=== PATIENT | male | born 1965 | race Caucasian/White ===

== ENCOUNTER 2016-11-17 10:32 | Emergency (ER) | payer SELFPAY ==
--- NOTE | 2016-11-17 11:02 | ED ORDER SUMMARY ---
..... Patient: GINGER GREEN OrderSheet [facility] VisitID: [id number] [place] [address] 51y, M Registration Date/Time: 11/17/2016 ORDER SHEET Weight: 107.7 kg (stated) Allergies: No Known Drug Allergy GENERAL ORDERS: MEDICATION ORDERS: Toradol IM 60 mg (NOW) (10:59 11/17/2016 Oskar Kuo) (11:04 Leighann R.N.) Clindamycin PO 300 mg (NOW) (11:23 11/17/2016 Oskar Kuo) (11:26 Leighann R.N.) IV FLUIDS: ORDER SHEET NOTES: [Electronically signed by Daphne Rollins R.N. (11:30 11/17/2016)] [Electronically signed by Macho Patterson Dr. (20:28 11/18/2016)] [Electronically locked/signed by Daphne Rollins R.N. (11:11/17/2016)]
--- NOTE | 2016-11-17 11:02 | ED CLINICAL REPORT ---
Clinical Report - Physicians/Mid Levels [facility] [address] [place] [address] 11/17/2016 10:34 Patient: GINGER GREEN Time Seen: 10:39. Arrived- By private vehicle. Historian- patient. HISTORY OF PRESENT ILLNESS Chief Complaint: EARACHE. itchy, red, rash. Modifying factors. Not worsened by anything. Not relieved by anything. This started several years ago and is still present (worse since 3 days ago). The patient cannot recall the circumstances at the onset. Location- right ear and left ear. The pain is described as mild. The patient has had ear pain. No ear drainage, complaint of foreign body in the ear or ear trauma. Similar symptoms previously: Many times. Recent medical care: Not recently seen/assessed. REVIEW OF SYSTEMS No fever, chills, nausea or vomiting. He has had skin rash. PAST HISTORY Hypertension. Back Pain. ADDITIONAL SURGERIES: Hernia Repair. Medications: Aleve Oral, as needed. Allergies: No Known Drug Allergy. SOCIAL HISTORY Current every day smoker. Occasional alcohol use. History of drug use: marijuana. ADDITIONAL NOTES The nursing notes have been reviewed. PHYSICAL EXAM Vital Signs: 11/17/2016 10:43 BP: 160/91. HR: 85. RR: 14. O2 saturation: 99%. Temp: 97.8 F. Pain level now: 6/10. Have been reviewed. Hypertensive. Heart rate normal. Respiratory rate normal. Temperature normal. Oxygen saturation normal. Appearance: Alert. No acute distress. Ear (left): There is tenderness of the auricle. No lymphadenopathy. Left tympanic membrane normal. Ear (right): There is tenderness of the auricle. No lymphadenopathy. Right tympanic membrane normal. Neck: No lymphadenopathy. Skin: Small area of cellulitis with tenderness, erythema and warmth (both auricles). No lymphangitis. PROGRESS AND PROCEDURES Disposition: Discharged home in good and improved condition. Condition: good. CLINICAL IMPRESSION Cellulitis of the right and left ear. INSTRUCTIONS Your Current Medications: CONTINUE TAKING THE FOLLOWING MEDICATIONS: Aleve Oral : prn. Prescription Medications: Mupirocin 2% ointment: apply small amount to affected area three times daily. Dispense twenty-two (22) grams. No refills. Clindamycin 300 mg: take 1 capsule orally every 8 hours for 7 days. No refill. Follow-up: Screening today revealed the patient's blood pressure to be in the hypertensive range. The patient should follow up with a primary care provider for blood pressure management. Follow-up with: Ander Morgan MD, [facility], , [place] [id number] Follow up in about two days. Call for an appointment. (Electronically signed by Macho Patterson Dr. 11/18/2016 20:28)
--- NOTE | 2016-11-17 11:02 | ED NURSING NOTES ---
Clinical Report - Nurses [facility] [address] [place] [address] 11/17/2016 10:34 Patient: GINGER GREEN TRIAGE Triage time 1044. Acuity: LEVEL 4. Chief Complaint: RIGHT EAR PAIN and LEFT EAR PAIN. Alert. No acute distress. SEPSIS SCREEN: Sepsis Screen. Negative (no infection suspected/documented). GEGE COMA SCORE: [place] Coma Scale: 15- eyes open spontaneously (4); best verbal response- oriented x 4 (5); best motor response- obeys commands (6). --10:59 Daphne Rollins R.N. 10:43 11/17/16. BP: 160/91 (regular adult cuff) taken on the left arm, via an automated monitor, while sitting. HR: 85. RR: 14. O2 saturation: 99% on room air. Temp: 97.8 F (oral). Pain level now: 12/12. --10:59 Daphne Rollins R.N. Weight: 107.7 kg stated. Height/Length: 69 inches Per Patient. BMI: 35.1. --10:43 Daphne Rollins R.N. Medications Aleve Oral, as needed. --10:49 Daphne Rollins R.N. Allergies No Known Drug Allergy. --10:49 Daphne Rollins R.N. Medication/allergy information source: the patient. --10:59 Daphne Rollins R.N. History Arrived by private vehicle. Historian: patient. Primary physician (none). ( Pt states ear problem has been an ongoing for the past 6-7 years, pt unsure of what his issue is he believes it has to do with "dryness" has used peroxide in the past to help. "This last ear pain, mostly right ear but left also hurts started about 2 days ago", he thinks he had a fever, H/A, dizziness. Right side noted to be red, specially around his right ear and side of his head. Pt tried to see an ENT today but unable to get appointment.). Onset. (2 days ongoing for 6-7 years). He has had fever, ear drainage and a headache. 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 PAST MEDICAL HX: Immunizations: status is unknown. SOCIAL HX: Heavy tobacco smoker- less than 1 pack per day. Alcohol use; consumes three beers occasionally. History of drug use: marijuana. (5 months). No infectious disease exposure. ABUSE ASSESSMENT: No report of abuse. SELF HARM ASSESSMENT: A self harm assessment was performed. The patient answered "no" to the question "Do you have thoughts of harming or killing yourself?" and "Have you recently had thoughts about harming or killing others?". FALL RISK ASSESSMENT: Fall risk assessment completed. No fall risk identified. NUTRITIONAL RISK ASSESSMENT: The nutritional risk assessment revealed no deficiencies. FUNCTIONAL ASSESSMENT: Functional assessment: no impairments noted. LEARNING NEEDS ASSESSMENT: The learning needs assessment revealed no barriers. SKIN INTEGRITY ASSESSMENT: Skin integrity risk assessment completed. No skin integrity risk identified. --10:59 Daphne Rollins R.N. PROBLEMS: Hypertension. Back Pain. --10:49 Daphne Rollins R.N. ADDITIONAL SURGERIES: Hernia Repair. --10:49 Daphne Rollins R.N. Interventions ID band on patient. --10:59 Daphne Rollins R.N. PHYSICAL ASSESSMENT Ambulatory to room. GENERAL / NEURO / PSYCH: Alert. Appears in pain. HEENT: Erythema of the right auricle; inflammation present in the right external auditory canal. Nares within normal limits. Pharynx within normal limits. No nasal discharge. No hearing deficit. RESPIRATORY: Respirations not labored. CVS: Capillary refill less than 2 seconds. SKIN: Skin is warm and dry. --11:01 Daphne Rollins R.N. NURSING PROGRESS NOTES The initial plan of care for this patient has been created This plan of care was discussed with the patient. Warming measures: blanket applied. Reassurance given. Two patient identifiers checked. Call light placed in reach. Side rails up. Bed placed in lowest position. --11:01 Daphne Rollins R.N. 11:04 11/17/2016 Toradol (Ketorolac Tromethamine) IM 60 mg given. Given in the right deltoid. Allergies verified and confirmed 5 rights. --11:04 Daphne Rollins R.N. 11:25 11/17/2016 Toradol IM Response: no adverse reaction pain is improving. Symptoms have improved the patient feels better. --11:30 Daphne Rollins R.N. 11:26 11/17/2016 Clindamycin PO Capsules 300 mg given. Allergies verified and confirmed 5 rights. --11:26 Daphne Rollins R.N. DISPOSITION / DISCHARGE Departure time: 1130 PM. Condition at departure: improved and stable. The goals identified in the patient's plan of care were met. No learning barriers present. Discharge instructions provided and reviewed with the patient. Reviewed medication(s) side effects, precautions, dosing and course information. Prescription(s) given to the patient. Reviewed referral to an zipper cutter for followup. Patient verbalized understanding. Written instructions provided in Japanese. The patient was discharged by the physician. He was discharged home and unaccompanied at time of discharge. He left the Emergency Department ambulatory and via private vehicle. FALL RISK ASSESSMENT: Fall risk assessment completed. No fall risk identified. --11:30 Daphne Rollins R.N. 11:20 11/17/16. BP: 160/81. HR: 84. RR: 15. O2 saturation: 99% on room air. Temp: 97.8 F (oral). Pain level now: 10/12. --11:30 Daphne Rollins R.N. Locked/Released at 11/17/2016 11:30 by Daphne Rollins R.N.
--- NOTE | 2016-11-17 11:02 | ED ORDER SUMMARY ---
..... Patient: GINGER GREEN OrderSheet [facility] VisitID: [id number] [place] [address] 51y, M Registration Date/Time: 11/17/2016 ORDER SHEET Weight: 107.7 kg (stated) Allergies: No Known Drug Allergy GENERAL ORDERS: MEDICATION ORDERS: Toradol IM 60 mg (NOW) (10:59 11/17/2016 Oskar Kuo) (11:04 Leighann R.N.) Clindamycin PO 300 mg (NOW) (11:23 11/17/2016 Oskar Kuo) (11:26 Leighann R.N.) IV FLUIDS: ORDER SHEET NOTES: [Electronically signed by Daphne Rollins R.N. (11:30 11/17/2016)] [Electronically signed by Macho Patterson Dr. (20:28 11/18/2016)] [Electronically locked/signed by Daphne Rollins R.N. (11:11/17/2016)]
--- NOTE | 2016-11-17 11:02 | ED NURSING NOTES ---
Clinical Report - Nurses [facility] [address] [place] [address] 11/17/2016 10:34 Patient: GINGER GREEN TRIAGE Triage time 1044. Acuity: LEVEL 4. Chief Complaint: RIGHT EAR PAIN and LEFT EAR PAIN. Alert. No acute distress. SEPSIS SCREEN: Sepsis Screen. Negative (no infection suspected/documented). GEGE COMA SCORE: [place] Coma Scale: 15- eyes open spontaneously (4); best verbal response- oriented x 4 (5); best motor response- obeys commands (6). --10:59 Daphne Rollins R.N. 10:43 11/17/16. BP: 160/91 (regular adult cuff) taken on the left arm, via an automated monitor, while sitting. HR: 85. RR: 14. O2 saturation: 99% on room air. Temp: 97.8 F (oral). Pain level now: 12/12. --10:59 Daphne Rollins R.N. Weight: 107.7 kg stated. Height/Length: 69 inches Per Patient. BMI: 35.1. --10:43 Daphne Rollins R.N. Medications Aleve Oral, as needed. --10:49 Daphne Rollins R.N. Allergies No Known Drug Allergy. --10:49 Daphne Rollins R.N. Medication/allergy information source: the patient. --10:59 Daphne Rollins R.N. History Arrived by private vehicle. Historian: patient. Primary physician (none). ( Pt states ear problem has been an ongoing for the past 6-7 years, pt unsure of what his issue is he believes it has to do with "dryness" has used peroxide in the past to help. "This last ear pain, mostly right ear but left also hurts started about 2 days ago", he thinks he had a fever, H/A, dizziness. Right side noted to be red, specially around his right ear and side of his head. Pt tried to see an ENT today but unable to get appointment.). Onset. (2 days ongoing for 6-7 years). He has had fever, ear drainage and a headache. 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 PAST MEDICAL HX: Immunizations: status is unknown. SOCIAL HX: Heavy tobacco smoker- less than 1 pack per day. Alcohol use; consumes three beers occasionally. History of drug use: marijuana. (5 months). No infectious disease exposure. ABUSE ASSESSMENT: No report of abuse. SELF HARM ASSESSMENT: A self harm assessment was performed. The patient answered "no" to the question "Do you have thoughts of harming or killing yourself?" and "Have you recently had thoughts about harming or killing others?". FALL RISK ASSESSMENT: Fall risk assessment completed. No fall risk identified. NUTRITIONAL RISK ASSESSMENT: The nutritional risk assessment revealed no deficiencies. FUNCTIONAL ASSESSMENT: Functional assessment: no impairments noted. LEARNING NEEDS ASSESSMENT: The learning needs assessment revealed no barriers. SKIN INTEGRITY ASSESSMENT: Skin integrity risk assessment completed. No skin integrity risk identified. --10:59 Daphne Rollins R.N. PROBLEMS: Hypertension. Back Pain. --10:49 Daphne Rollins R.N. ADDITIONAL SURGERIES: Hernia Repair. --10:49 Daphne Rollins R.N. Interventions ID band on patient. --10:59 Daphne Rollins R.N. PHYSICAL ASSESSMENT Ambulatory to room. GENERAL / NEURO / PSYCH: Alert. Appears in pain. HEENT: Erythema of the right auricle; inflammation present in the right external auditory canal. Nares within normal limits. Pharynx within normal limits. No nasal discharge. No hearing deficit. RESPIRATORY: Respirations not labored. CVS: Capillary refill less than 2 seconds. SKIN: Skin is warm and dry. --11:01 Daphne Rollins R.N. NURSING PROGRESS NOTES The initial plan of care for this patient has been created This plan of care was discussed with the patient. Warming measures: blanket applied. Reassurance given. Two patient identifiers checked. Call light placed in reach. Side rails up. Bed placed in lowest position. --11:01 Daphne Rollins R.N. 11:04 11/17/2016 Toradol (Ketorolac Tromethamine) IM 60 mg given. Given in the right deltoid. Allergies verified and confirmed 5 rights. --11:04 Daphne Rollins R.N. 11:25 11/17/2016 Toradol IM Response: no adverse reaction pain is improving. Symptoms have improved the patient feels better. --11:30 Daphne Rollins R.N. 11:26 11/17/2016 Clindamycin PO Capsules 300 mg given. Allergies verified and confirmed 5 rights. --11:26 Daphne Rollins R.N. DISPOSITION / DISCHARGE Departure time: 1130 PM. Condition at departure: improved and stable. The goals identified in the patient's plan of care were met. No learning barriers present. Discharge instructions provided and reviewed with the patient. Reviewed medication(s) side effects, precautions, dosing and course information. Prescription(s) given to the patient. Reviewed referral to an glaciologist for followup. Patient verbalized understanding. Written instructions provided in Macedonian. The patient was discharged by the physician. He was discharged home and unaccompanied at time of discharge. He left the Emergency Department ambulatory and via private vehicle. FALL RISK ASSESSMENT: Fall risk assessment completed. No fall risk identified. --11:30 Daphne Rollins R.N. 11:20 11/17/16. BP: 160/81. HR: 84. RR: 15. O2 saturation: 99% on room air. Temp: 97.8 F (oral). Pain level now: 10/12. --11:30 Daphne Rollins R.N. Locked/Released at 11/17/2016 11:30 by Daphne Rollins R.N.
--- NOTE | 2016-11-17 11:02 | ED CLINICAL REPORT ---
Clinical Report - Physicians/Mid Levels [facility] [address] [place] [address] 11/17/2016 10:34 Patient: GINGER GREEN Time Seen: 10:39. Arrived- By private vehicle. Historian- patient. HISTORY OF PRESENT ILLNESS Chief Complaint: EARACHE. itchy, red, rash. Modifying factors. Not worsened by anything. Not relieved by anything. This started several years ago and is still present (worse since 3 days ago). The patient cannot recall the circumstances at the onset. Location- right ear and left ear. The pain is described as mild. The patient has had ear pain. No ear drainage, complaint of foreign body in the ear or ear trauma. Similar symptoms previously: Many times. Recent medical care: Not recently seen/assessed. REVIEW OF SYSTEMS No fever, chills, nausea or vomiting. He has had skin rash. PAST HISTORY Hypertension. Back Pain. ADDITIONAL SURGERIES: Hernia Repair. Medications: Aleve Oral, as needed. Allergies: No Known Drug Allergy. SOCIAL HISTORY Current every day smoker. Occasional alcohol use. History of drug use: marijuana. ADDITIONAL NOTES The nursing notes have been reviewed. PHYSICAL EXAM Vital Signs: 11/17/2016 10:43 BP: 160/91. HR: 85. RR: 14. O2 saturation: 99%. Temp: 97.8 F. Pain level now: 6/10. Have been reviewed. Hypertensive. Heart rate normal. Respiratory rate normal. Temperature normal. Oxygen saturation normal. Appearance: Alert. No acute distress. Ear (left): There is tenderness of the auricle. No lymphadenopathy. Left tympanic membrane normal. Ear (right): There is tenderness of the auricle. No lymphadenopathy. Right tympanic membrane normal. Neck: No lymphadenopathy. Skin: Small area of cellulitis with tenderness, erythema and warmth (both auricles). No lymphangitis. PROGRESS AND PROCEDURES Disposition: Discharged home in good and improved condition. Condition: good. CLINICAL IMPRESSION Cellulitis of the right and left ear. INSTRUCTIONS Your Current Medications: CONTINUE TAKING THE FOLLOWING MEDICATIONS: Aleve Oral : prn. Prescription Medications: Mupirocin 2% ointment: apply small amount to affected area three times daily. Dispense twenty-two (22) grams. No refills. Clindamycin 300 mg: take 1 capsule orally every 8 hours for 7 days. No refill. Follow-up: Screening today revealed the patient's blood pressure to be in the hypertensive range. The patient should follow up with a primary care provider for blood pressure management. Follow-up with: Ander Morgan MD, [facility], , [place] [phone] Follow up in about two days. Call for an appointment. (Electronically signed by Macho Patterson Dr. 11/18/2016 20:28)
--- NOTE | 2016-11-18 20:28 | ED MAR SUMMARY ---
..... Medication Administration Record [facility] [address] [place] [address] Patient: GINGER GREEN Visit ID: [id number] 51y, M Weight: 107.7 kg Height/Length: 69 in BMI: 35.1 ALLERGIES: No Known Drug Allergy Given 11:04 11/17/2016 Daphne Rollins, RYvonneN. Medication Administered: TORADOL [IM] (KETOROLAC TROMETHAMINE), Dose: 60 mg IM. Medication Ordered: Toradol IM 60 mg (NOW). Given 11:26 11/17/2016 Daphne Rollins, R.N. Medication Administered: CLINDAMYCIN [PO], Dose: 300 mg Capsules PO. Medication Ordered: Clindamycin PO 300 mg (NOW).
--- NOTE | 2016-11-18 20:28 | ED MAR SUMMARY ---
..... Medication Administration Record [facility] [address] [place] [address] Patient: GINGER GREEN Visit ID: [id number] 51y, M Weight: 107.7 kg Height/Length: 69 in BMI: 35.1 ALLERGIES: No Known Drug Allergy Given 11:04 11/17/2016 Daphne Rollins, RYvonneN. Medication Administered: TORADOL [IM] (KETOROLAC TROMETHAMINE), Dose: 60 mg IM. Medication Ordered: Toradol IM 60 mg (NOW). Given 11:26 11/17/2016 Daphne Rollins, R.N. Medication Administered: CLINDAMYCIN [PO], Dose: 300 mg Capsules PO. Medication Ordered: Clindamycin PO 300 mg (NOW).
--- NOTE | 2016-11-18 20:28 | ED DISCHARGE INSTRUCTIONS ---
Patient: GINGER GREEN General Instructions [facility] VisitID: [id number] [place], [place] [id number] 51y, M Registration Date/Time: 11/17/2016 Cellulitis of the right and left ear. INSTRUCTIONS Your Current Medications: CONTINUE TAKING THE FOLLOWING MEDICATIONS: Aleve Oral : prn. Prescription Medications: Mupirocin 2% ointment: apply small amount to affected area three times daily. Dispense twenty-two (22) grams. No refills. Clindamycin 300 mg: take 1 capsule orally every 8 hours for 7 days. No refill. Follow-up: Screening today revealed the patient's blood pressure to be in the hypertensive range. The patient should follow up with a primary care provider for blood pressure management. Follow-up with: Ander Morgan MD, [facility], , [place] [id number] Follow up in about two days. Call for an appointment. ADDITIONAL INFORMATION Cellulitis You have an infection of the skin known as cellulitis. This usually starts with a scrape, cut, insect bite, blister or other opening in the skin which becomes infected. This is a serious condition. It must be watched closely to be sure the infection is not spreading. With antibiotic treatment, the size of the red area will gradually shrink in size until the skin returns to normal. This will take 7-10 days. The red area should never increase in size once the antibiotic medicine has been started. Occasionally, an infection will be resistant to one antibiotic and another one will have to be used. Home Care: 1) Limit the use of the affected part, since excess movement can cause the infection to spread. 2) If the infection is on your leg, walk as little as possible during the first few days of the treatment. Keep your leg elevated while sitting. This will reduce swelling. 3) Take all of the antibiotic medicine exactly as directed until it is gone. Be careful not to miss any doses, especially during the first seven days. Follow Up with your doctor or this facility as directed. Check the infected area daily for the warning signs listed below. Get Prompt Medical Attention if any of the following occur: -- Spreading area of redness -- Increasing swelling or pain -- Appearance of pus or drainage -- Fever over 100.4 F (38.0 C) oral, or over 101.4 F (38.6 C) rectal, after two days on antibiotics Mupirocin Topical ointment What is this medicine? MUPIROCIN (myoo PEER oh sin) is an antibiotic. It is used on the skin to treat skin infections. How should I use this medicine? This medicine is for external use only. Follow the directions on the prescription label. Wash your hands before and after use. Before applying, wash the affected area with mild soap and water and pat dry. Apply a small amount to the affected area and rub gently. You can cover the area with a gauze dressing. Do not get this medicine in your eyes. If you do, rinse out with plenty of cool tap water. Do not use your medicine more often than directed. Finish the full course of medicine prescribed by your doctor or health medicare nurse even if you think your condition is better. Do not use over large areas of burnt skin. Talk to your android framework developer regarding the use of this medicine in children. Special care may be needed. What side effects may I notice from receiving this medicine? Side effects that you should report to your doctor or health medicare nurse as soon as possible: skin rash, redness, continued swelling, burning, itching, stinging, or pain Side effects that usually do not require medical attention (report to your doctor or health medicare nurse if they continue or are bothersome): dry skin, itching What may interact with this medicine? Interactions are not expected. Do not use any other skin products on the affected area without telling your doctor or health medicare nurse. What if I miss a dose? If you miss a dose, take it as soon as you can. If it is almost time for your next dose, take only that dose. Do not take double or extra doses. Where should I keep my medicine? Keep out of the reach of children. Store at room temperature between 20 and 25 degrees C (68 and 77 degrees F). Throw away any unused medicine after the expiration date. What should I tell my health care provider before I take this medicine? They need to know if you have any of these conditions: an unusual or allergic reaction to mupirocin, polyethylene glycol (PEG), or other topical antibiotic medicine or trying to get breast-feeding What should I watch for while using this medicine? Tell your doctor or health medicare nurse if your skin condition does not begin to improve within 3 to 5 days. Clindamycin Hydrochloride Oral capsule What is this medicine? CLINDAMYCIN (RONA Pacheco) is a lincosamide antibiotic. It is used to treat certain kinds of bacterial infections. It will not work for colds, flu, or other viral infections. How should I use this medicine? Take this medicine by mouth with a full glass of water. Follow the directions on the prescription label. You can take this medicine with food or on an empty stomach. If the medicine upsets your stomach, take it with food. Take your medicine at regular intervals. Do not take your medicine more often than directed. Take all of your medicine as directed even if you think your are better. Do not skip doses or stop your medicine early. Talk to your android framework developer regarding the use of this medicine in children. Special care may be needed. What side effects may I notice from receiving this medicine? Side effects that you should report to your doctor or health medicare nurse as soon as possible: allergic reactions like skin rash, itching or hives, swelling of the face, lips, or tongue dark urine pain on swallowing redness, blistering, peeling or loosening of the skin, including inside the mouth unusual bleeding or bruising unusually weak or tired yellowing of eyes or skin Side effects that usually do not require medical attention (report to your doctor or health medicare nurse if they continue or are bothersome): diarrhea itching in the rectal or genital area joint pain nausea, vomiting stomach pain What may interact with this medicine? chloramphenicol erythromycin kaolin products What if I miss a dose? If you miss a dose, take it as soon as you can. If it is almost time for your next dose, take only that dose. Do not take double or extra doses. Where should I keep my medicine? Keep out of the reach of children. Store at room temperature between 20 and 25 degrees C (68 and 77 degrees F). Throw away any unused medicine after the expiration date. What should I tell my health care provider before I take this medicine? They need to know if you have any of these conditions: kidney disease liver disease stomach problems like colitis an unusual or allergic reaction to clindamycin, lincomycin, or other medicines, foods, dyes like tartrazine or preservatives or trying to get breast-feeding What should I watch for while using this medicine? Tell your doctor or healthcare professional if your symptoms do not start to get better or if they get worse. Do not treat diarrhea with over the counter products. Contact your doctor if you have diarrhea that lasts more than 2 days or if it is severe and watery. You have been given the following additional information: Cellulitis Mupirocin Topical ointment Clindamycin Hydrochloride Oral capsule (Electronically signed by Macho Patterson Dr. 11/18/2016 20:28)
--- NOTE | 2016-11-18 20:28 | ED DISCHARGE INSTRUCTIONS ---
Patient: GINGER GREEN General Instructions [facility] VisitID: [id number] [place], [place] [id number] 51y, M Registration Date/Time: 11/17/2016 Cellulitis of the right and left ear. INSTRUCTIONS Your Current Medications: CONTINUE TAKING THE FOLLOWING MEDICATIONS: Aleve Oral : prn. Prescription Medications: Mupirocin 2% ointment: apply small amount to affected area three times daily. Dispense twenty-two (22) grams. No refills. Clindamycin 300 mg: take 1 capsule orally every 8 hours for 7 days. No refill. Follow-up: Screening today revealed the patient's blood pressure to be in the hypertensive range. The patient should follow up with a primary care provider for blood pressure management. Follow-up with: Ander Morgan MD, [facility], , [place] [id number] Follow up in about two days. Call for an appointment. ADDITIONAL INFORMATION Cellulitis You have an infection of the skin known as cellulitis. This usually starts with a scrape, cut, insect bite, blister or other opening in the skin which becomes infected. This is a serious condition. It must be watched closely to be sure the infection is not spreading. With antibiotic treatment, the size of the red area will gradually shrink in size until the skin returns to normal. This will take 7-10 days. The red area should never increase in size once the antibiotic medicine has been started. Occasionally, an infection will be resistant to one antibiotic and another one will have to be used. Home Care: 1) Limit the use of the affected part, since excess movement can cause the infection to spread. 2) If the infection is on your leg, walk as little as possible during the first few days of the treatment. Keep your leg elevated while sitting. This will reduce swelling. 3) Take all of the antibiotic medicine exactly as directed until it is gone. Be careful not to miss any doses, especially during the first seven days. Follow Up with your doctor or this facility as directed. Check the infected area daily for the warning signs listed below. Get Prompt Medical Attention if any of the following occur: -- Spreading area of redness -- Increasing swelling or pain -- Appearance of pus or drainage -- Fever over 100.4 F (38.0 C) oral, or over 101.4 F (38.6 C) rectal, after two days on antibiotics Mupirocin Topical ointment What is this medicine? MUPIROCIN (myoo PEER oh sin) is an antibiotic. It is used on the skin to treat skin infections. How should I use this medicine? This medicine is for external use only. Follow the directions on the prescription label. Wash your hands before and after use. Before applying, wash the affected area with mild soap and water and pat dry. Apply a small amount to the affected area and rub gently. You can cover the area with a gauze dressing. Do not get this medicine in your eyes. If you do, rinse out with plenty of cool tap water. Do not use your medicine more often than directed. Finish the full course of medicine prescribed by your doctor or health customer care consultant even if you think your condition is better. Do not use over large areas of burnt skin. Talk to your riding instructor regarding the use of this medicine in children. Special care may be needed. What side effects may I notice from receiving this medicine? Side effects that you should report to your doctor or health customer care consultant as soon as possible: skin rash, redness, continued swelling, burning, itching, stinging, or pain Side effects that usually do not require medical attention (report to your doctor or health customer care consultant if they continue or are bothersome): dry skin, itching What may interact with this medicine? Interactions are not expected. Do not use any other skin products on the affected area without telling your doctor or health customer care consultant. What if I miss a dose? If you miss a dose, take it as soon as you can. If it is almost time for your next dose, take only that dose. Do not take double or extra doses. Where should I keep my medicine? Keep out of the reach of children. Store at room temperature between 20 and 25 degrees C (68 and 77 degrees F). Throw away any unused medicine after the expiration date. What should I tell my health care provider before I take this medicine? They need to know if you have any of these conditions: an unusual or allergic reaction to mupirocin, polyethylene glycol (PEG), or other topical antibiotic medicine or trying to get breast-feeding What should I watch for while using this medicine? Tell your doctor or health customer care consultant if your skin condition does not begin to improve within 3 to 5 days. Clindamycin Hydrochloride Oral capsule What is this medicine? CLINDAMYCIN (RONA Pacheco) is a lincosamide antibiotic. It is used to treat certain kinds of bacterial infections. It will not work for colds, flu, or other viral infections. How should I use this medicine? Take this medicine by mouth with a full glass of water. Follow the directions on the prescription label. You can take this medicine with food or on an empty stomach. If the medicine upsets your stomach, take it with food. Take your medicine at regular intervals. Do not take your medicine more often than directed. Take all of your medicine as directed even if you think your are better. Do not skip doses or stop your medicine early. Talk to your riding instructor regarding the use of this medicine in children. Special care may be needed. What side effects may I notice from receiving this medicine? Side effects that you should report to your doctor or health customer care consultant as soon as possible: allergic reactions like skin rash, itching or hives, swelling of the face, lips, or tongue dark urine pain on swallowing redness, blistering, peeling or loosening of the skin, including inside the mouth unusual bleeding or bruising unusually weak or tired yellowing of eyes or skin Side effects that usually do not require medical attention (report to your doctor or health customer care consultant if they continue or are bothersome): diarrhea itching in the rectal or genital area joint pain nausea, vomiting stomach pain What may interact with this medicine? chloramphenicol erythromycin kaolin products What if I miss a dose? If you miss a dose, take it as soon as you can. If it is almost time for your next dose, take only that dose. Do not take double or extra doses. Where should I keep my medicine? Keep out of the reach of children. Store at room temperature between 20 and 25 degrees C (68 and 77 degrees F). Throw away any unused medicine after the expiration date. What should I tell my health care provider before I take this medicine? They need to know if you have any of these conditions: kidney disease liver disease stomach problems like colitis an unusual or allergic reaction to clindamycin, lincomycin, or other medicines, foods, dyes like tartrazine or preservatives or trying to get breast-feeding What should I watch for while using this medicine? Tell your doctor or healthcare professional if your symptoms do not start to get better or if they get worse. Do not treat diarrhea with over the counter products. Contact your doctor if you have diarrhea that lasts more than 2 days or if it is severe and watery. You have been given the following additional information: Cellulitis Mupirocin Topical ointment Clindamycin Hydrochloride Oral capsule (Electronically signed by Macho Patterson Dr. 11/18/2016 20:28)
--- NOTE | 2016-11-18 20:29 | ED MED RECONCILIATION SUMMARY ---
Patient: GINGER GREEN Medication Reconciliation Report [facility] VisitID: [id number] [address] [place] [address] 51y, M Registration Date/Time: 11/17/2016 Weight: 107.7 kg Height/Length: 69 in. BMI: 35.1 ALLERGIES: No Known Drug Allergy The patient's Home Medications are listed below: CONTINUE TAKING THE FOLLOWING MEDICATIONS: Aleve Oral The source(s) of the original Home Medication information: patient The following Medications were given to the patient in the Emergency Department: Toradol [IM] IM 60 mg, administered: 11/17/2016 11:04:00 AM Clindamycin [PO] PO 300 mg, administered: 11/17/2016 11:26:00 AM The following Medications were prescribed to the patient: Mupirocin 2% ointment: apply small amount to affected area three times daily. Dispense twenty-two (22) grams. No refills. -- Macho Patterson Dr. Clindamycin 300 mg: take 1 capsule orally every 8 hours for 7 days. No refill. -- Macho Patterson Dr.
--- NOTE | 2016-11-18 20:29 | ED MED RECONCILIATION SUMMARY ---
Patient: GINGER GREEN Medication Reconciliation Report [facility] VisitID: [id number] [address] [place] [address] 51y, M Registration Date/Time: 11/17/2016 Weight: 107.7 kg Height/Length: 69 in. BMI: 35.1 ALLERGIES: No Known Drug Allergy The patient's Home Medications are listed below: CONTINUE TAKING THE FOLLOWING MEDICATIONS: Aleve Oral The source(s) of the original Home Medication information: patient The following Medications were given to the patient in the Emergency Department: Toradol [IM] IM 60 mg, administered: 11/17/2016 11:04:00 AM Clindamycin [PO] PO 300 mg, administered: 11/17/2016 11:26:00 AM The following Medications were prescribed to the patient: Mupirocin 2% ointment: apply small amount to affected area three times daily. Dispense twenty-two (22) grams. No refills. -- Macho Patterson Dr. Clindamycin 300 mg: take 1 capsule orally every 8 hours for 7 days. No refill. -- Macho Patterson Dr.
== END 2016-11-17 11:30 | disposition home or self-care (01) ==
LOC: ED SRH 10:32
DX: H60.13 Cellulitis of external ear, bilateral (principal); I10 Essential (primary) hypertension; F17.200 Nicotine dependence, unspecified, uncomplicated